=== PATIENT | male | born 1995 ===

== ENCOUNTER 2018-02-24 20:56 | Emergency (ER) | payer SELFPAY ==
[2018-02-24] MEDS ORDERED: cefTRIAXone\\ROCEPHIN 1 GM VIAL ONE (21:29)
== END 2018-02-24 21:37 ==
LOC: BURERS 20:56
DX: S01.81XA Laceration without foreign body of other part of head, initial encounter (principal); S01.112A Laceration without foreign body of left eyelid and periocular area, initial encounter; Y04.0XXA Assault by unarmed brawl or fight, initial encounter
CPT/HCPCS: 12052; 96372; J0696